=== PATIENT | male | born 1950 | race American Indian/Alaskan Native ===

== ENCOUNTER 2017-06-30 23:02 | Emergency (ER) | payer MEDICARE, OTHER ==
[2017-06-30 23:09] VITALS: TEMP 97.7; BMI 32.5
--- NOTE | 2017-06-30 23:53 | ED PDOC ---
Arrival/HPI - General Chief Complaint: Shortness Of Breath Time Seen by Provider: 06/30/17 23:04 Historian: Patient - History of Present Illness Narrative History of Present Illness (Text): 06/30/17 23:53 A 67 year old male presents to the emergency department complaining of shortness of breath, lower extremity swelling and dizziness. Patient denies any chest pain, fever, chills, nausea, vomiting or any other complaints at this time. Symptom Onset: Sudden Symptom Course: Unchanged Activities at Onset: Rest Context: Home Past Medical History - Provider Review Nursing Documentation Reviewed: Yes - Infectious Disease Hx of Infectious Diseases: None - Cardiac Hx Cardiac Disorders: No Hx Hypertension: Yes - Pulmonary Hx Respiratory Disorders: No - Neurological Hx Neurological Disorder: No - HEENT Hx HEENT Disorder: No - Renal Hx Renal Disorder: No - Endocrine/Metabolic Hx Endocrine Disorders: No - Hematological/Oncological Hx Blood Disorders: No - Integumentary Hx Dermatological Disorder: No - Musculoskeletal/Rheumatological Hx Arthritis: Yes - Gastrointestinal Hx Gastrointestinal Disorders: No - Genitourinary/Gynecological Hx Genitourinary Disorders: No - Psychiatric Hx Psychophysiologic Disorder: No Hx Substance Use: No - Surgical History Other/Comment: stomach surgery 6 years ago SBO - Anesthesia Hx Anesthesia: Yes Hx Anesthesia Reactions: No Hx Malignant Hyperthermia: No - Suicidal Assessment Feels Threatened In Home Enviroment: No Family/Social History - Physician Review Nursing Documentation Reviewed: Yes Family/Social History: No Known Family HX Smoking Status: Never Smoked Hx Alcohol Use: Yes Hx Substance Use: No Allergies/Home Meds Allergies/Adverse Reactions: Allergies No Known Allergies Allergy (Verified 06/30/17 23:09) Home Medications: Home Meds Medication Instructions Recorded Confirmed Unobtainable 07/01/17 07/01/17 Review of Systems - Physician Review All systems were reviewed & negative as marked: Yes - Review of Systems Constitutional: absent: Fevers, Other (chills) Respiratory: SOB Cardiovascular: absent: Chest Pain Gastrointestinal: absent: Nausea, Vomiting Musculoskeletal: Other (lower extremity swelling) Neurological: Dizziness Physical Exam Vital Signs Reviewed: Yes Vital Signs Temp Pulse Resp BP Pulse Ox 07/01/17 01:02 76 16 160/77 H 99 06/30/17 23:21 18 97 06/30/17 23:09 97.7 F 75 19 158/91 H 94 L 06/30/17 23:08 97.7 F 75 19 158/91 H 94 L Temperature: Afebrile Blood Pressure: Hypertensive Pulse: Regular Respiratory Rate: Normal Appearance: Positive for: Well-Appearing, Non-Toxic, Comfortable Pain Distress: None Mental Status: Positive for: Alert and Oriented X 3 - Systems Exam Head: Present: Atraumatic, Normocephalic Pupils: Present: PERRL Extroacular Muscles: Present: EOMI Conjunctiva: Present: Normal Mouth: Present: Moist Mucous Membranes Neck: Present: Normal Range of Motion Respiratory/Chest: Present: Clear to Auscultation, Good Air Exchange. No: Respiratory Distress, Accessory Muscle Use Cardiovascular: Present: Regular Rate and Rhythm, Normal S1, S2. No: Murmurs Abdomen: Present: Normal Bowel Sounds. No: Tenderness, Distention, Peritoneal Signs Back: Present: Normal Inspection Upper Extremity: Present: Normal Inspection. No: Cyanosis, Edema Lower Extremity: Present: Edema Neurological: Present: GCS=15, CN II-XII Intact, Speech Normal Skin: Present: Warm, Dry, Normal Color. No: Rashes Psychiatric: Present: Alert, Oriented x 3, Normal Insight, Normal Concentration Medical Decision Making ED Course and Treatment: 06/30/17 23:50 Impression: A 67 year old male with shortness of breath, lower extremity swelling and dizziness. Plan: -- EKG -- chest xray -- labs -- Reassess and disposition Prior Visits: Notes and results from previous visits were reviewed. Patient was last seen in the emergency department on 05/08/15 for evaluation of right knee pain and swelling. Progress Notes: EKG: Ordered, reviewed, and independently interpreted the EKG. Rate : 72 BPM Rhythm : NSR Interpretation : Nonspecific ST segment changes, normal intervals 07/01/17 01:00 chest xray: No active disease, interpreted by me. pt feels better declines admission will dc 07/02/17 02:06 Reassessment Condition: Re-examined, Improved - Lab Interpretations Lab Results: 06/30/17 23:45 06/30/17 23:45 Lab Results 07/01/17 00:25: pO2 99 H, VBG pH 7.42, VBG pCO2 44.0, VBG HCO3 28.5 H, VBG Total CO2 29.9 H, VBG O2 Sat (Calc) 99.0 H, VBG Base Excess 3.4 H, VBG Potassium 4.2, Glucose 116 H, Lactate 1.2, FiO2 21.0, Sodium 139.0, Chloride 106.0, Venous Blood Potassium 4.2 06/30/17 23:45: Sodium 141, Potassium 3.7, Chloride 104, Carbon Dioxide 25, Anion Gap 16, BUN 20, Creatinine 1.0, Est GFR ( Amer) > 60, Est GFR (Non- Af Amer) > 60, Random Glucose 124 H, Calcium 9.4, Total Bilirubin 1.3, AST 28, ALT 36, Alkaline Phosphatase 57, Lactate Dehydrogenase 532, Total Creatine Kinase 260 H, CK-MB (CK-2) 2.6, CK-MB (CK-2) % Cancelled, Troponin I < 0.01, NT- Pro-B Natriuret Pep 191, Total Protein 7.4, Albumin 4.1, Globulin 3.2, Albumin/ Globulin Ratio 1.3 06/30/17 23:45: WBC 7.1, RBC 4.30, Hgb 13.8 L, Hct 41.1 L, MCV 95.6, MCH 32.1, MCHC 33.6, RDW 13.6, Plt Count 198, MPV 10.1, Gran % 67.5, Lymph % (Auto) 21.8 L , [place] % (Auto) 7.8 H, Eos % (Auto) 2.8, Baso % (Auto) 0.1, Gran # 4.78, Lymph # 1.5, [place] # 0.6, Eos # 0.2, Baso # 0.01 I have reviewed the lab results: Yes - RAD Interpretation Radiology Orders: 06/30/17 23:21 CHEST PORTABLE [RAD] Stat - EKG Interpretation Interpreted by ED Physician: Yes Type: 12 lead EKG Wells Criteria for PE - Wells Criteria for Pulmonary Embolism Clinical Signs and Symptoms of DVT: No P.E is #1 Diagnosis, or Equally Likely: No Heart Rate >100: No Immobilization at least 3 days;Surgery previous 4 weeks: No Previous, objectively diagnosed PE or DVT: No Hemoptysis: No Malignancy w/treatment within 6 months, or palliative: No Total Score: 0 - Scribe Statement The provider has reviewed the documentation as recorded by the Elroy Calvillo Provider Scribe Attestation: All medical record entries made by the Scribe were at my direction and personally dictated by me. I have reviewed the chart and agree that the record accurately reflects my personal performance of the history, physical exam, medical decision making, and the department course for this patient. I have also personally directed, reviewed, and agree with the discharge instructions and disposition. Disposition/Present on Arrival - Present on Arrival Any Indicators Present on Arrival: No History of DVT/PE: No History of Uncontrolled Diabetes: No Urinary Catheter: No History of Decub. Ulcer: No History Surgical Site Infection Following: None - Disposition Have Diagnosis and Disposition been Completed?: Yes Diagnosis: Dyspnea Disposition: HOME/ ROUTINE Disposition Time: 01:17 Condition: GOOD Discharge Instructions (ExitCare): Dyspnea (ED) Forms: [facility] (Martiniquais)
[2017-06-30 23:58] LABS: BASO # 0.01 K/mm3 (0.0-2.0); BASO % 0.1 % (0.0-3.0); EOS # 0.2 (0.0-0.7); EOS % 2.8 % (1.5-5.0); GRAN # 4.78 (1.4-6.5); GRAN % 67.5 % (50.0-68.0); HEMATOCRIT 41.1 % (42.0-52.0); LYMPH # 1.5 (1.2-3.4); LYMPH % 21.8 % (22.0-35.0); MEAN CELL VOLUME 95.6 fl (80.0-105.0); MEAN CORPUSCULAR HEMOGLOBIN 32.1 pg (25.0-35.0); MEAN CORPUSCULAR HGB CONC 33.6 g/dl (31.0-37.0); MEAN PLATELET VOLUME 10.1 fl (7.0-11.0); MONO # 0.6 (0.1-0.6); MONO % 7.8 % (1.0-6.0); RED CELL DISTRIBUTION WIDTH 13.6 % (11.5-14.5); WHITE BLOOD COUNT 7.1 10^3/ul (4.5-11.0)
[2017-07-01 00:03] LABS: ALB/GLOB RATIO 1.3 (1.1-1.8); ALKALINE PHOSPHATASE 57 U/L (38-126); ALT/SGPT 36 U/L (7-56); AST/SGOT 28 U/L (17-59); BILIRUBIN,TOTAL 1.3 mg/dL (0.2-1.3); BLOOD UREA NITROGEN 20 mg/dL (7-21); CALCIUM 9.4 mg/dL (8.4-10.5); CARBON DIOXIDE 25 mmol/L (21-33); CHLORIDE 104 mmol/L (98-107); GFR AFRICAN-AMERICAN > 60; GLUCOSE,RANDOM 124 mg/dL (70-110); POTASSIUM 3.7 mmol/L (3.6-5.0); SODIUM 141 mmol/L (132-148); TOTAL PROTEIN 7.4 g/dL (5.8-8.3)
[2017-07-01 00:15] LABS: TROPONIN I < 0.01 ng/mL
[2017-07-01 00:36] LABS: VENOUS BLOOD GAS BASE EXCESS 3.4 mmol/L (0.0-2.0); VENOUS BLOOD PH 7.42 (7.32-7.43)
[2017-07-01 01:39] VITALS: BP 160/77; PULSE 76; RESP 16; O2SAT 99
--- NOTE | 2017-07-01 08:47 | CARD ---
APPROVED REPORT EKG Measurement Heart [id number] <Conclusion> Normal sinus rhythm Left axis deviation Possible inferior infarct, age undetermined
--- NOTE | 2017-07-01 13:04 | RAD ---
HISTORY: sob COMPARISON: No prior. FINDINGS: LUNGS: No active pulmonary disease. PLEURA: No significant pleural effusion identified, no pneumothorax apparent. CARDIOVASCULAR: Normal. OSSEOUS STRUCTURES: No significant abnormalities. VISUALIZED UPPER ABDOMEN: Normal. OTHER FINDINGS: None. IMPRESSION: No active disease.
== END 2017-07-01 01:42 | disposition home or self-care (01) ==
LOC: ED 23:02
DX: R06.00 Dyspnea, unspecified (principal)